=== PATIENT | female | born 2000 | race Caucasian/White ===

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

== ENCOUNTER 2020-11-14 19:12 | Emergency (ER) | payer BC, OTHER ==
[~2020-11-14] VITALS: Ht 157.5 cm; Wt 68.0 kg
[2020-11-14] MEDS ORDERED: FLUOXETINE HCL60 MG PO (20:09)
[2020-11-14] MEDS ORDERED: NEXPLANON68 MG SC (20:10)
[2020-11-14] MEDS ORDERED: Monodox100 MG PO (21:55)
[2020-11-14] MEDS ORDERED: IBU800 MG PO (21:55)
== END 2020-11-14 22:21 | disposition home or self-care (01) ==
LOC: ER 19:12
DX: N61.0 Mastitis without abscess (principal); Z88.0 Allergy status to penicillin; Z79.3 Long term (current) use of hormonal contraceptives; Z79.899 Other long term (current) drug therapy
CPT/HCPCS: 99283; A9270

== ENCOUNTER 2020-11-16 07:02 | Emergency (ER) | payer BC, OTHER ==
[~2020-11-16] VITALS: Ht 160 cm; Wt 70.3 kg
[~2020-11-16 07:02] MED LIST: FLUOXETINE HCL60 MG PO; IBU800 MG PO; Monodox100 MG PO; NEXPLANON68 MG SC
[2020-11-16 08:16] LABS: BASOPHILS ABSOLUTE AUTO 0.05 K/mm3 (0.00-0.23); BASOPHILS PERCENT AUTO 0 % (0-2); EOSINOPHILS ABSOLUTE AUTO 0.15 K/mm3 (0.00-0.68); EOSINOPHILS PERCENT AUTO 1 % (0-6); Hematocrit 39.5 % (33.0-51.0); Hemoglobin 13.7 g/dL (11.5-16.0); IMMATURE GRAN ABSOLUTE AUTO 0.07 K/mm3 (0.00-0.10); IMMATURE GRAN PERCENT AUTO 1 % (0-1); LYMPHOCYTES ABSOLUTE AUTO 2.38 K/mm3 (0.84-5.20); LYMPHOCYTES PERCENT AUTO 18 % (21-46); MONOCYTES ABSOLUTE AUTO 0.97 K/mm3 (0.16-1.47); MONOCYTES PERCENT AUTO 7 % (4-13); Mean Corpuscular HGB 31.2 pg (26.0-34.0); Mean Corpuscular HGB Conc 34.7 g/dL (31.5-36.5); Mean Corpuscular Volume 90 fL (80-100); Mean Platelet Volume 10.3 fL (9.1-12.4); NEUTROPHILS ABSOLUTE AUTO 9.96 K/mm3 (1.96-9.15); NEUTROPHILS PERCENT AUTO 73 % (41-73); Platelet Count 216 K/mm3 (150-400); RDW Coefficient Variation 12.4 % (11.7-14.2); RDW Standard Deviation 40.9 fL (35.1-46.3); Red Blood Cell Count 4.39 M/mm3 (3.80-5.20); White Blood Cell Count 13.58 K/mm3 (4.00-11.30)
[2020-11-16 08:37] LABS: Alanine Aminotransfer (ALT/SGP 20 U/L (12-78); Albumin, Blood 3.6 g/dL (3.4-5.0); Alk Phos 63 U/L (50-136); Anion Gap 4 mmol/L (6-16); Aspartate Aminotrans (AST/SGOT 14 U/L (12-37); Bilirubin, Total 0.3 mg/dL (0.1-1.0); Blood Urea Nitrogen 12 mg/dL (8-24); Bun/Creatinine Ratio 20.2 (12.0-20.0); CO2, Blood 28 mmol/L (21-32); Calcium, Blood 8.8 mg/dL (8.5-10.1); Chloride, Blood 109 mmol/L (98-108); Creatinine, Blood 0.59 mg/dL (0.40-1.00); Globulin, Blood 3.6 g/dL (2.2-4.0); Glomerular Filtration Rate >60 (60-); Glucose, Blood 90 mg/dL (70-99); Potassium, Blood 3.7 mmol/L (3.5-5.5); Sodium, Blood 141 mmol/L (136-145); Total Protein, Blood 7.2 g/dL (6.4-8.2)
[2020-11-16] MEDS ORDERED: ZOFRAN4 MG PO (08:38)
[2020-11-16] MEDS ORDERED: CEPH500 PO (08:38)
== END 2020-11-16 09:10 | disposition home or self-care (01) ==
LOC: ER 07:02
PROVIDERS: Physician Assistant
DX: N61.0 Mastitis without abscess (principal)
CPT/HCPCS: 36415; 80053; 85025; 96374; 99284-25; A9270; J2405

== ENCOUNTER → 2022-01-13 | Outpatient (CLI) | payer BC, OTHER ==
[~2022-01-13] MED LIST changes: +CEPH500 PO; +ZOFRAN4 MG PO
== END | disposition home or self-care (01) ==
LOC: LAB SHORT 13:40
DX: J02.9 Acute pharyngitis, unspecified (principal)
CPT/HCPCS: 87081